=== PATIENT | female | born 1960 | race Caucasian/White ===

== ENCOUNTER 2017-03-02 13:26 | Emergency (ER) | payer OTHER ==
[~2017-03-02] VITALS: Ht 157.5 cm; Wt 64.0 kg
[2017-03-02 14:43] LABS: HEMATOCRIT 42.1 % (36.0-46.0); MCH 29.4 PG (29.0-34.0); MCV 89.2 FL (83-99); MEAN PLAT.VOLUME 10.6 uM^3 (9.5-12.4); PLATELET COUNT 212 K/uL (156-360); RBC DIS.WIDTH-CV 12.7 % (11.8-14.6); RBC DIS.WIDTH-SD 41.7 % (39-53); RED BLOOD COUNT 4.72 M/uL (3.80-5.20); WHITE BLOOD COUNT 8.4 K/uL (4.1-10.2)
[2017-03-02 14:52] LABS: CHLORIDE 106 mEq/L (99-109); POTASSIUM 4.4 mEq/L (3.7-5.4); SODIUM 140 mEq/L (136-147)
[2017-03-02 14:54] LABS: GLUCOSE 91 mg/dL (70-99)
[2017-03-02 14:56] LABS: ANION GAP 10 MEQ/L (2-14); TOTAL BILIRUBIN 0.7 mg/dL (0.0-1.0)
[2017-03-02] MEDS ORDERED: CLEOCIN300 MG PO (14:56)
[2017-03-02 14:58] LABS: ALKALINE PHOSPHATASE 69 IU/L (3-129)
[2017-03-02 14:59] LABS: UREA NITROGEN (BUN) 7 mg/dL (9-23)
[2017-03-02 15:04] LABS: GFR ESTIMATE (CALCULATED) > 59 mL/min/
[2017-03-02] MEDS ORDERED: ALPRAZOLAM1 MG PO (17:25)
[2017-03-02] MEDS ORDERED: VENTOLIN HFA18 GM IH (17:26)
[2017-03-02] MEDS ORDERED: PREMPRO 0.621 TABLET PO (17:26)
[2017-03-02] MEDS ORDERED: ZOLPIDEM TARTRA10 MG PO (17:26)
[2017-03-02] MEDS ORDERED: CITALOPRAM HBR40 MG PO (17:27)
[2017-03-02] MEDS ORDERED: PANTOPRAZOLE SO40 MG PO (17:27)
[2017-03-02] MEDS ORDERED: NORCO 5/3251 TABLET PO (18:18)
[2017-03-02 18:34] VITALS: BP 118/68
== END 2017-03-02 18:36 | disposition home or self-care (01) ==
LOC: EME 13:26
PROC: 0C96XZZ Drainage of Lower Gingiva, External Approach (ICD-10-PCS; principal; 2017-03-02)
DX: L03.211 Cellulitis of face (principal); K04.7 Periapical abscess without sinus; J44.9 Chronic obstructive pulmonary disease, unspecified
CPT/HCPCS: 70487; 80053; 85027; 99281; 99285; J0696; J3010; J7030; J7050